=== PATIENT | female | born 1985 | race Caucasian/White ===

== ENCOUNTER 2017-09-07 07:18 | Day surgery (SDC) | payer MEDICAID ==
[2017-09-05 16:05] LABS: BASOPHILS % (AUTO) 0.3 % (0-1); EOSINOPHILS # (AUTO) 0.1 X10'3 (0-0.9); EOSINOPHILS % (AUTO) 1.5 % (0-6); LYMPHOCYTES # (AUTO) 2.2 X10'3 (1.1-4.8); LYMPHOCYTES % (AUTO) 29.4 % (21-51); MEAN CORPUSCULAR HEMOGLOBIN 32.5 PG (27.0-31.0); MEAN CORPUSCULAR HGB CONC 35.2 % (33.0-36.5); MEAN CORPUSCULAR VOLUME 92.3 FL (78-98); MEAN PLATELET VOLUME 8.8 FL (7.4-10.4); MONOCYTES # (AUTO) 0.4 X10'3 (0-0.9); NEUTROPHILS # (AUTO) 4.7 X10'3 (1.8-7.7); NEUTROPHILS % (AUTO) 63.8 % (42-75); PRE OP HEMATOCRIT 38.6 % (35.0-45.0); PRE OP HEMOGLOBIN 13.6 g/dL (12.0-16.0); PRE OP PLATELET COUNT 206 X10'3 (140-440); RED BLOOD COUNT 4.18 X10'6 (4.20-5.60); RED CELL DISTRIBUTION WIDTH 13.3 % (11.5-14.5)
[2017-09-05 16:14] LABS: ALBUMIN 4.1 G/DL (3.4-5.0); ANION GAP 10 (8-16); BLOOD UREA NITROGEN 15 MG/DL (7-18); BUN/CREATININE RATIO 18.1 (6.6-38.0); CALCIUM 8.6 MG/DL (8.5-10.1); CHLORIDE 104 MMOL/L (99-107); CREATININE 0.83 MG/DL (0.40-0.90); GLUCOSE 64 MG/DL (70-104); POTASSIUM 3.4 MMOL/L (3.5-5.1); SODIUM 141 MMOL/L (135-145); TOTAL CARBON DIOXIDE 26.7 MMOL/L (24-32); eGFR 79 ML/MIN
[2017-09-05 16:19] LABS: HCG SERUM QL NEGATIVE
[~2017-09-07] VITALS: Ht 172.7 cm; Wt 63.6 kg
[2017-09-07] VITALS (8 sets, daily range): BP systolic 99–118; BP diastolic 60–80
[~2017-09-07 07:18] MED LIST: NO HOME MEDS; famotidine 20mg tablet PO ONE; ringers solution, lacted 1,000 ML IV SCH
[2017-09-07] MEDS ORDERED: LIDOcaine 1% (10mg/ml) 2ml vial ONE (07:59)
[2017-09-07] MEDS ORDERED: fentaNYL/PF 50MCG/1 ML 2ML syringe ONE (08:48)
[2017-09-07] MEDS ORDERED: midazolam 2 mg/2 ml injection ONE (08:48)
[2017-09-07] MEDS ORDERED: ringers solution, lacted 1,000 ML IV SCH (08:52)
[2017-09-07] MEDS ORDERED: ondansetron/PF 4mg/2ml inj IV PRN (08:55)
[2017-09-07] MEDS ORDERED: proCHLORperazine 10 MG/2 ml inj IV PRN (08:55)
[2017-09-07] MEDS ORDERED: meperidine/PF 50mg/ml syringe IV PRN ×3 (08:55)
[2017-09-07] MEDS ORDERED: morphine 2 MG/ML inj. syringe IV PRN ×2 (08:55)
[2017-09-07] MEDS ORDERED: neostigmine methylsulfate 1 MG/ML 10ml vial ONE (09:22)
[2017-09-07] MEDS ORDERED: propofol inj 20 ML IV ONE (09:22)
[2017-09-07] MEDS ORDERED: rocuronium 10mg/ml inj IV ONE (09:22)
[2017-09-07] MEDS ORDERED: glycopyrrolate 0.2mg/ml inj ONE (09:22)
[2017-09-07] MEDS ORDERED: LIDOcaine 2% (20mg/ml) 5ml vial ONE (09:22)
[2017-09-07] MEDS ORDERED: ondansetron/PF 4mg/2ml inj ONE (09:22)
[2017-09-07] MEDS ORDERED: HYDROcodone/acetaminophen 10/325mg tab PO PRN (10:52)
== END 2017-09-07 11:10 | disposition home or self-care (01) ==
LOC: PAS 07:18
PROVIDERS: ATTEND Obstetrics & Gynecology
DX: Z30.2 Encounter for sterilization (principal); Z87.891 Personal history of nicotine dependence; Z72.89 Other problems related to lifestyle
CPT/HCPCS: 36415; 58670; 80048; 84703; 85025; J2001; J2175; J2250; J2405; J2704; J2710; J3010; J3490; J7120; A7000